=== PATIENT | female | born 1990 | race Caucasian/White ===

== ENCOUNTER 2019-11-03 10:03 | Emergency (ER) | payer MEDICAID, OTHER ==
[~2019-11-03] VITALS: Ht 170.2 cm; Wt 90.7 kg
[2019-11-03 10:08] VITALS: BP 148/92
[2019-11-03] MEDS ORDERED: KETOROLAC TROMETH 60MG/2ML VIAL IM ONE (11:45)
== END 2019-11-03 12:49 | disposition home or self-care (01) ==
LOC: ER 10:03 → EDBD 10:03 → ER 12:49
DX: S00.03XA Contusion of scalp, initial encounter (principal); M79.631 Pain in right forearm; Y04.2XXA Assault by strike against or bumped into by another person, initial encounter; Y93.89 Activity, other specified; Y92.89 Other specified places as the place of occurrence of the external cause; Y99.8 Other external cause status
CPT/HCPCS: 70450; 73080; 73090; 73130; 96372; 99284; J1885